=== PATIENT | male | born 1985 | race Caucasian/White ===

== ENCOUNTER 2016-05-22 11:26 | Emergency (ER) | payer BC, OTHER ==
[2016-05-22 11:36] VITALS: BP 141/72; PULSE 72; TEMP 98.2; BMI 25.1
--- NOTE | 2016-05-22 12:02 | PDOC ---
History of Present Illness - History of Present Illness Initial Comments: 05/22/16 12:22 The patient is a 31 year old male with no past medical hx who presents to the ED s/p fall complaining of lower back pain since this 1030 morning. The patient reports he was on a ladder at work doing some cleaning when the ladder welding broke. He reports he he then fell off of the ladder down five feet and landed onto his buttocks. The patient denies hitting his head or LOC. He reports he felt a tingling throughout his entire body that lasted for a few seconds. The patient notes he was able to stand up and walk around immediately after the fall. He reports his pain is not worse when bearing weight. 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 He denies any pain medication at this time. The patient denies neck pain, arm pain, leg pain The patient denies blurred vision, dizziness, headache The patient denies chest pain, SOB, nausea, vomiting Allergies: NKDA Social: Nonsmoker, drinks alcohol on occasion, denies illicit drug use Surgical: None reported <Lilian Craft - Last Filed: 05/22/16 13:41> <Patience Riley - Last Filed: 05/22/16 14:26> - General Chief Complaint: Back Pain Stated Complaint: LOWER BACK PAIN Time Seen by Provider: 05/22/16 11:59 Past History <Lilian Craft - Last Filed: 05/22/16 13:41> - Past Medical History Other medical history: DENIES. - Psycho/Social/Smoking Cessation Hx Suicidal Ideation: No Smoking History: Never smoked <Patience Riley - Last Filed: 05/22/16 14:26> - Past Medical History Allergies/Adverse Reactions: Allergies Allergy/AdvReac Type Severity Reaction Status Date / Time No Known Allergies Allergy Verified 05/22/16 11:31 Home Medications: Ambulatory Orders NK [No Known Home Medication] 05/22/16 Review of Systems - Review of Systems Able to Perform ROS?: Yes Comments:: 05/22/16 12:24 CONSTITUTIONAL: Absent: fever, chills, diaphoresis, generalized weakness, malaise, loss of appetite HEENT: Absent: rhinorrhea, nasal congestion, throat pain, throat swelling, difficulty swallowing, mouth swelling, ear pain, eye pain, visual Changes CARDIOVASCULAR: Absent: chest pain, syncope, palpitations, irregular heart rate, lightheadedness , peripheral edema RESPIRATORY: Absent: cough, shortness of breath, dyspnea with exertion, orthopnea, wheezing, stridor, hemoptysis GASTROINTESTINAL: Absent: abdominal pain, abdominal distension, nausea, vomiting, diarrhea, constipation, melena, hematochezia GENITOURINARY: Absent: dysuria, frequency, urgency, hesitancy, hematuria, flank pain, genital pain MUSCULOSKELETAL: +Lower back pain. Absent: joint swelling, arm pain, leg pain, neck pain SKIN: Absent: rash, itching, pallor NEUROLOGIC: Absent: headache, focal weakness or paresthesias, dizziness, unsteady gait, seizure, mental status changes, bladder or bowel incontinence PSYCHIATRIC: Absent: anxiety, depression, suicidal or homicidal ideation, hallucinations. <Lilian Craft - Last Filed: 05/22/16 13:41> *Physical Exam - Vital Signs Last Vital Signs Temp Pulse Resp BP Pulse Ox 98.2 F 72 19 141/72 99 05/22/16 11:32 05/22/16 11:32 05/22/16 11:32 05/22/16 11:32 05/22/16 11:32 - Physical Exam Comments: 05/22/16 12:41 GENERAL: Well developed, well nourished. Awake and alert. In no acute distress. HEENT: Normocephalic, atraumatic. PERRLA, EOMI. No conjunctival pallor. Sclera are non- icteric. Moist mucous membranes. Oropharynx is clear. NECK: Supple. Full ROM. No JVD. Carotid pulses 2+ and symmetric, without bruits. CARDIOVASCULAR: Regular rate and rhythm. No murmurs, rubs, or gallops. Distal pulses are 2+ and symmetric. PULMONARY: No evidence of respiratory distress. Lungs clear to auscultation bilaterally. No wheezing, rales or rhonchi. ABDOMINAL: Soft. Non-tender. Non-distended. No rebound or guarding. MUSCULOSKELETAL +Mild tenderness to palpation on the right lower sacral region. Normal range of motion at all joints. No bony deformities or tenderness. EXTREMITIES: No cyanosis. No clubbing. No edema. No calf tenderness. SKIN: Warm and dry. Normal capillary refill. No rashes. No jaundice. NEUROLOGICAL: Alert, awake, appropriate. Cranial nerves 2-12 intact. PSYCHIATRIC: Cooperative. Good eye contact. Appropriate mood and affect. <Lilian Craft - Last Filed: 05/22/16 13:41> - Vital Signs Last Vital Signs Temp Pulse Resp BP Pulse Ox 98.2 F 72 19 141/72 99 05/22/16 11:32 05/22/16 11:32 05/22/16 11:32 05/22/16 11:32 05/22/16 11:32 <Patience Riley - Last Filed: 05/22/16 14:26> ED Treatment Course - RADIOLOGY Radiograph Interpretation: 05/22/16 13:41 Thoracic spine X-Ray AP and lateral views reveal scoliosis with convexity to the right, loss of bone density and degenerative changes with wedging. The paraspinal soft tissues appear intact. There is a prominent heart. Impression: No acute pathology. See discussion above. If symptoms persist, further imaging and orthopedic consultation may be of help Reported By: Donald Vargas MD 05/22/16 1301 Lumbar spine X-Ray The AP views shows 5 lumbar type vertebral bodies which appear grossly intact. The SI joints are patent. The paraspinal tissue appear intact. The lateral lateral and spot lateral view show straightening with no sign of blastic or lytic changes and no sign of fracture or subluxation. There is some minimal Schmorls node formation seen in the lower LS spine. If symptoms persist, further imaging and orthopedic consultation may be of help. Impression: No acute pathology. Reported by: Donald Vargas MD 05/22/16 1255 <Lilian Craft - Last Filed: 05/22/16 13:41> Medical Decision Making - Medical Decision Making 05/22/16 12:02 Patient seen and examined at bed side. Vitals, unremarkable. Patient looks comfortable. Not in pain. Doesn't need pain medication as per the patient. x-ray of lumbar and sacral ordered 05/22/16 13:45 Patient reassessed. Xray reviewed. No fracture noted. Patient has a Schmorl's node and patient has been made aware of the node. On the basis of history, physical exam and investigation, there is no fracture in the lumbar or sacral area. Patient is hemodynamically stable and can be discharged. Patient has been advised to visit his primary doctor as soon as possible and to return to the ED if there are any NEW symptoms. Illness, Investigation and Plan of care explained to the patient. He verbalized understanding. Case seen and discussed with Dr. Valera. <Patience Riley - Last Filed: 05/22/16 14:26> *DC/Admit/Observation/Transfer <Lilian Craft - Last Filed: 05/22/16 13:41> <Patience Riley - Last Filed: 05/22/16 14:26> Diagnosis at time of Disposition: Back contusion - Discharge Dispostion Disposition: HOME Condition at time of disposition: Stable - Patient Instructions Printed Discharge Instructions: DI for Contusion Additional Instructions: Return to the emergency department immediately with ANY new, persistent or worsening symptoms. You MUST call and follow up with your doctor tomorrow. Please make sure your doctor reviews the results of your emergency department evaluation. We provided him with copies of the x-rays which we obtained. The radiologist noticed something called a "Schmorls node," which is a benign finding, but should be followed up by your primary care physician. - Post Discharge Activity Work/School Note: Back to Work
--- NOTE | 2016-05-22 12:05 | PDOC ---
Attending Attestation - Resident Resident Name: Patience Riley - ED Attending Attestation I have performed the following: I have examined & evaluated the patient, The case was reviewed & discussed with the resident, I agree w/resident's findings & plan, Exceptions are as noted - HPI HPI: 05/22/16 12:04 The pt is a 31 year old male who presents to the ED s/p mechanical fall. He denies lower extremity weakness/paresthesias, bladder or bowel incontinence or retention. 05/22/16 12:16 - Physicial Exam PE: 05/22/16 12:05 He is well appearing and in no acute distress He does not have vertebral body tenderness 05/22/16 12:16 - Medical Decision Making 05/22/16 12:16 His pain is very minimal and he does not have clinical evidence of fracture Given the mechanism of action, will obtain T and L spine films 05/22/16 13:33 Xrays noted He is aware of Schmirls node and will seek follow-up Clinical impression: Back contusion I discussed the physical exam findings, ancillary test results and final diagnoses with the patient. I answered all of the patient's questions. The patient was satisfied with the care received and felt comfortable with the discharge plan and treatment plan. The patient will call their primary care physician within 24 hours to arrange follow-up and will return to the Emergency Department with any new, persistent or worsening symptoms. <Donald Valera - Last Filed: 05/22/16 13:33> - Medical Decision Making 05/22/16 13:42 Thoracic spine X-Ray AP and lateral views reveal scoliosis with convexity to the right, loss of bone density and degenerative changes with wedging. The paraspinal soft tissues appear intact. There is a prominent heart. Impression: No acute pathology. See discussion above. If symptoms persist, further imaging and orthopedic consultation may be of help Reported By: Donald Vargas MD 05/22/16 1301 Lumbar spine X-Ray The AP views shows 5 lumbar type vertebral bodies which appear grossly intact. The SI joints are patent. The paraspinal tissue appear intact. The lateral lateral and spot lateral view show straightening with no sign of blastic or lytic changes and no sign of fracture or subluxation. There is some minimal Schmorls node formation seen in the lower LS spine. If symptoms persist, further imaging and orthopedic consultation may be of help. Impression: No acute pathology. Reported by: Donald Vargas MD 05/22/16 1255 <Lilian Craft - Last Filed: 05/22/16 13:42> Discharge Disposition <Donald Valera - Last Filed: 05/22/16 13:33> <Lilian Craft - Last Filed: 05/22/16 13:42> - Diagnosis Back contusion - Discharge Dispostion Disposition: HOME - Patient Instructions Printed Discharge Instructions: DI for Contusion Additional Instructions: Return to the emergency department immediately with ANY new, persistent or worsening symptoms. You MUST call and follow up with your doctor tomorrow. Please make sure your doctor reviews the results of your emergency department evaluation. We provided him with copies of the x-rays which we obtained. The radiologist noticed something called a "Schmorls node," which is a benign finding, but should be followed up by your primary care physician. - Post Discharge Activity Work/School Note: Back to Work
== END 2016-05-22 13:45 | disposition home or self-care (01) ==
LOC: JERFT 11:26 → JER 11:26
DX: S30.0XXA Contusion of lower back and pelvis, initial encounter (principal); W11.XXXA Fall on and from ladder, initial encounter; Y93.H9 Activity, other involving exterior property and land maintenance, building and construction; Y92.69 Other specified industrial and construction area as the place of occurrence of the external cause; Y99.0 Civilian activity done for income or pay
CPT/HCPCS: 72070-TC; 72100-TC; 99282-25